=== PATIENT | female | born 1980 | race Caucasian/White ===

== ENCOUNTER 2017-06-14 08:03 | Emergency (ER) | payer OTHER ==
[2017-06-14 08:12] VITALS: TEMP 98.5
[2017-06-14] MEDS ORDERED: Sodium Chloride 0.9% 1,000 ML IV ONE (08:34)
--- NOTE | 2017-06-14 08:38 | C.PDOC ---
History Of Present Illness 37 yr old female presents to the ER with complaints of LLQ pain for the past 5 days. Patient has history of Endometriosis. Patient brought prior records from , history of license of adhesions, right salpingectomy. As per OP note, "+ L adnexa with extensive adhesions and left fallopian tube and ovary unable to identified secondary to adhesions". ROS is limited. LIMITED DUE TO CLIN COND LLQ PAIN X 5 DAYS. HO ENDOMETRIOSIS PT BROUGHT PRIOR RECORDS: 11/2013 HO LOS, R SALPINGECTOMY. PER OP NOTE, "+L ADNEXA W EXTENSIVE ADHESIONS AND L FALLOPIAN TUBE AND OVARY UNABLE TO IDENTIFIED SECONDARY TO ADHESIONS" ROS LIMITED EXAM MOD DIST CRYING NONTOXIC ABD OBESE +LLQ/PELVIC TEND MOD SOFT NO R/G REMAINDER NEG Time Seen by Provider: 06/14/17 08:14 Chief Complaint (Nursing): Abdominal Pain History Per: Patient, Other (Prior records) History/Exam Limitations: no limitations Onset/Duration Of Symptoms: Days (5) Past Medical History Reviewed: Historical Data, Nursing Documentation, Vital Signs Vital Signs: Last Vital Signs Temp 98.5 F 06/14/17 08:12 Pulse 75 06/14/17 10:19 Resp 19 06/14/17 10:19 BP 93/63 L 06/14/17 10:19 Pulse Ox 100 06/14/17 10:48 Family History: States: No Known Family Hx - Social History Hx Alcohol Use: No Hx Substance Use: No - Immunization History Hx Tetanus Toxoid Vaccination: No Hx Influenza Vaccination: No Hx Pneumococcal Vaccination: No Review Of Systems Review Of Systems: ROS cannot be obtained secondary to pt's inabilty to answer questions. Gastrointestinal: Positive for: Abdominal Pain (LLQ) Physical Exam - Physical Exam Appears: Non-toxic, In Acute Distress (Moderate, crying.) Skin: Warm, Dry, No Rash Head: Atraumatic, Normacephalic Oral Mucosa: Moist Chest: Symmetrical, No Tenderness Cardiovascular: Rhythm Regular, No Murmur Respiratory: Normal Breath Sounds, No Rales, No Rhonchi, No Wheezing Gastrointestinal/Abdominal: Soft, Tenderness (LLQ/Pelvic moderate tednerness. ) , No Guarding, No Rebound Back: Normal Inspection, No CVA Tenderness Extremity: Normal ROM, No Swelling ED Course And Treatment - Laboratory Results Result Diagrams: 06/14/17 08:45 06/14/17 08:45 O2 Sat by Pulse Oximetry: 100 (RA) Pulse Ox Interpretation: Normal - CT Scan/US CT - Abd & Pelvis Other Rad Studies (CT/US): Read By Radiologist, Radiology Report Reviewed CT/US Interpretation: PROCEDURE: CT Abdomen and Pelvis with and without intravenous contrast. HISTORY: LLQ PAIN. COMPARISON: None. TECHNIQUE: Axial images of the abdomen were obtained in the pre contrast, portal venous and delayed phases of enhancement. Coronal and sagittal reformats were generated. Contrast dose: 100 mL Visipaque three hundred twenty. Axial and reformatted coronal and sagittal CT images of the abdomen and pelvis were obtained after IV contrast administration. Radiation dose: Total exam DLP = 2870.53 mGy-cm. This CT exam was performed using one or more of the following dose reduction techniques: Automated exposure control, adjustment of the mA and/ or kV according to patient size, and/or use of iterative reconstruction technique. FINDINGS: LOWER THORAX: Unremarkable. LIVER: Unremarkable. No gross lesion or ductal dilatation. GALLBLADDER AND BILE DUCTS: Unremarkable. PANCREAS: Unremarkable. No gross lesion or ductal dilatation. SPLEEN: Unremarkable. ADRENALS: Unremarkable. No mass. KIDNEYS AND URETERS: Unremarkable. No hydronephrosis. No solid mass. VASCULATURE: Unremarkable. No aortic aneurysm. BOWEL: Questionable mild left colon wall thickening versus incomplete distention. No definite evidence of diverticulosis or diverticulitis. No obstruction. No gross mural thickening. No evidence of intestinal pneumatosis. APPENDIX: No evidence of appendicitis. PERITONEUM: Unremarkable. No free fluid. No free air. LYMPH NODES: Mildly enlarged retroperitoneal lymph nodes and mesenteric lymph nodes at the mid and upper abdomen. BLADDER: Unremarkable. REPRODUCTIVE: There is moderate enlargement of the left adnexa measures 7.1 x 5.1 centimeter contains multiple cyst. Mildly enlarged right adnexa is also noted. The uterus is normal in size and shape. BONES: No acute fracture. OTHER FINDINGS: None. IMPRESSION: Moderately enlarged left adnexa contains multiple cysts. Correlate with ultrasound of the pelvis. Questionable mild left colon wall thickening versus incomplete distention. No evidence of nephrolithiasis or hydronephrosis. US - Transvaginal Other Rad Studies (CT/US): Read By Radiologist, Radiology Report Reviewed CT/US Interpretation: HISTORY: L PELVIC PAIN RO TORSION. COMPARISON: None available. TECHNIQUE: Transvaginal ultrasound examination of the pelvis was performed. The transvaginal exam was performed to evaluate the deep adnexal structures. FINDINGS: UTERUS: Measures 7.2 x 3.7 x 5.1 cm. Normal in size and appearance. No fibroid or other mass lesion seen. ENDOMETRIUM: Measures 6.6 mm in diameter. Unremarkable. CERVIX: No cervical abnormality identified. RIGHT OVARY: Measures 4.2 x 2.3 x 3.7 cm. No solid mass. Normal flow. There is 2.1 x 1.7 x 2.5 centimeters complex cyst seen at the right ovary. LEFT OVARY : Measures 7.4 x 4.7 x 6.7 cm. No solid mass. Normal flow. Multiple complex cysts are seen at the left ovary with the largest cyst measures 2.84 x 2.4 x 4.4 centimeter. FREE FLUID: No significant free fluid noted. OTHER FINDINGS: None. IMPRESSION: Grossly unremarkable ultrasound examination of the uterus. Moderately enlarged left adnexa contains simple and complex cyst may represent hemorrhagic cyst. No ultrasound Doppler evidence of ovarian torsion. Progress - Re-Evaluation Re-evaluation Note: 06/14/17 08:44 d/w dr WILCOX AWARE OF ER FINDINGS AND AGREES W PLAN. 06/14/17 09:15 Patient reports improvement in pain, s/p Morphine. States the pain occasional radiates. Denies associated symptoms fever, nausea, vomiting or diarrhea. Patient is pending CT. 06/14/17 10:48 EXAM NEG. REMAINS ASYMPT ADVISED FU OBGYN - Data Reviewed Data Reviewed: Lab, Diagnostic imaging, Old records - Continuity of Care Discussed pt. case with interventional sale consultant/specialty: Obstetrics/Gynecology Medical Decision Making Medical Decision Making: PLAN: * CT - Abdomen & Pelvis * US - Transvaginal * CBC * CMP * Urinalysis * Morphine IVP * Sodium Chloride IV Disposition Counseled Patient/Family Regarding: Studies Performed, Diagnosis, Need For Followup, Rx Given - Disposition Referrals: YOUR,OBGYN [Other] Disposition: HOME/ ROUTINE Disposition Time: 10:49 Condition: IMPROVED Prescriptions: Acetaminophen/Codeine [Tylenol/Codeine 300 MG/30 MG] 2 tab PO Q6H PRN #20 tab PRN Reason: Pain, Moderate (4-7) Ibuprofen [Motrin] 600 mg PO Q6 #30 tab Instructions: Ovarian Cyst (ED) Forms: [facility] (Bulgarian), Work Excuse - Clinical Impression Clinical Impression: Ovarian cyst - Scribe Statement The provider has reviewed the documentation as recorded by the Danitzaibe Marta Azul Provider Attestation: All medical record entries made by the Danitzaibe were at my direction and personally dictated by me. I have reviewed the chart and agree that the record accurately reflects my personal performance of the history, physical exam, medical decision making, and the department course for this patient. I have also personally directed, reviewed, and agree with the discharge instructions and disposition.
[2017-06-14] MEDS ORDERED: Morphine 4 MG/ML VIAL ONE (08:41)
[2017-06-14] MEDS ORDERED: Sodium Chloride 0.9% 1,000 ML ONE (08:41)
[2017-06-14 08:49] LABS: BASO # 0.1 K/uL (0.0-0.2); EOS # 0.2 K/uL (0.0-0.7); EOS % 3.3 % (0.0-4.0); HEMATOCRIT 39.8 % (34.0-47.0); LYMPH # 1.7 K/uL (1.0-4.3); LYMPH % 29.4 % (20.0-40.0); MEAN CELL VOLUME 73.8 fL (81.0-99.0); MEAN CORPUSCULAR HEMOGLOBIN 24.4 pg (27.0-31.0); MEAN PLATELET VOLUME 7.1 fL (7.2-11.7); MONO # 0.6 K/uL (0.0-0.8); MONO % 10.7 % (0.0-10.0); NRBC % 0.1 % (0.0-2.0); WHITE BLOOD COUNT 5.8 K/uL (4.8-10.8)
[2017-06-14 08:55] LABS: CHLORIDE 99 mmol/L (98-107)
[2017-06-14 08:56] LABS: POTASSIUM 4.4 mmol/L (3.6-5.2); SODIUM 135 mmol/L (132-148)
[2017-06-14 08:58] LABS: CARBON DIOXIDE 24 mmol/L (22-30); GFR AFRICAN-AMERICAN > 60
[2017-06-14 08:58] LABS: URINE BACTERIA RARE (<OCC); URINE BILIRUBIN NEGATIVE (NEGATIVE); URINE BLOOD 2+ (NEGATIVE); URINE COLOR Yellow (YELLOW); URINE GLUCOSE (UA) NORMAL (Normal); URINE KETONE NEGATIVE (NEGATIVE); URINE LEUKOCYTE ESTERASE 1+ Leu/uL (Negative); URINE PROTEIN NEGATIVE (NEGATIVE); URINE UROBILINOGEN NORMAL mg/dL (0.2-1.0); WBC URINE 2 /hpf (0-5)
[2017-06-14 08:59] LABS: RBC URINE 3 /hpf (0-3)
[2017-06-14 08:59] LABS: ALB/GLOB RATIO 0.9 (1.0-2.1); ALKALINE PHOSPHATASE 87 U/L (38-126); ALT/SGPT 25 U/L (9-52); AST/SGOT 24 U/L (14-36); BILIRUBIN,TOTAL 0.5 mg/dL (0.2-1.3); BLOOD UREA NITROGEN 12 mg/dL (7-17); CALCIUM 9.5 mg/dl (8.6-10.4); GLUCOSE,RANDOM 116 mg/dL (65-105)
[2017-06-14] MEDS ORDERED: Iodixanol 320 MG/ML 100 ML BOTTLE IV ONE (09:10)
[2017-06-14 10:19] VITALS: BP 93/63; PULSE 75; RESP 19
[2017-06-14 10:29] VITALS: O2SAT 100
--- NOTE | 2017-06-14 10:32 | CT ---
PROCEDURE: CT Abdomen and Pelvis with and without intravenous contrast HISTORY: LLQ PAIN COMPARISON: None. TECHNIQUE: Axial images of the abdomen were obtained in the pre contrast, portal venous and delayed phases of enhancement. Coronal and sagittal reformats were generated. Contrast dose: 100 mL Visipaque three hundred twenty. Axial and reformatted coronal and sagittal CT images of the abdomen and pelvis were obtained after IV contrast administration. Radiation dose: Total exam DLP = 2870.53 mGy-cm. This CT exam was performed using one or more of the following dose reduction techniques: Automated exposure control, adjustment of the mA and/or kV according to patient size, and/or use of iterative reconstruction technique. FINDINGS: LOWER THORAX: Unremarkable. LIVER: Unremarkable. No gross lesion or ductal dilatation. GALLBLADDER AND BILE DUCTS: Unremarkable. PANCREAS: Unremarkable. No gross lesion or ductal dilatation. SPLEEN: Unremarkable. ADRENALS: Unremarkable. No mass. KIDNEYS AND URETERS: Unremarkable. No hydronephrosis. No solid mass. VASCULATURE: Unremarkable. No aortic aneurysm. BOWEL: Questionable mild left colon wall thickening versus incomplete distention. No definite evidence of diverticulosis or diverticulitis. No obstruction. No gross mural thickening. No evidence of intestinal pneumatosis. APPENDIX: No evidence of appendicitis. PERITONEUM: Unremarkable. No free fluid. No free air. LYMPH NODES: Mildly enlarged retroperitoneal lymph nodes and mesenteric lymph nodes at the mid and upper abdomen. BLADDER: Unremarkable. REPRODUCTIVE: There is moderate enlargement of the left adnexa measures 7.1 x 5.1 centimeter contains multiple cyst. Mildly enlarged right adnexa is also noted. The uterus is normal in size and shape. BONES: No acute fracture. OTHER FINDINGS: None. IMPRESSION: Moderately enlarged left adnexa contains multiple cysts. Correlate with ultrasound of the pelvis. Questionable mild left colon wall thickening versus incomplete distention. No evidence of nephrolithiasis or hydronephrosis.
--- NOTE | 2017-06-14 10:39 | US ---
HISTORY: L PELVIC PAIN RO TORSION COMPARISON: None available. TECHNIQUE: Transvaginal ultrasound examination of the pelvis was performed. The transvaginal exam was performed to evaluate the deep adnexal structures. FINDINGS: UTERUS: Measures 7.2 x 3.7 x 5.1 cm. Normal in size and appearance. No fibroid or other mass lesion seen. ENDOMETRIUM: Measures 6.6 mm in diameter. Unremarkable. CERVIX: No cervical abnormality identified. RIGHT OVARY: Measures 4.2 x 2.3 x 3.7 cm. No solid mass. Normal flow. There is 2.1 x 1.7 x 2.5 centimeters complex cyst seen at the right ovary. LEFT OVARY: Measures 7.4 x 4.7 x 6.7 cm. No solid mass. Normal flow. Multiple complex cysts are seen at the left ovary with the largest cyst measures 2.84 x 2.4 x 4.4 centimeter. FREE FLUID: No significant free fluid noted. OTHER FINDINGS: None. IMPRESSION: Grossly unremarkable ultrasound examination of the uterus. Moderately enlarged left adnexa contains simple and complex cyst may represent hemorrhagic cyst. No ultrasound Doppler evidence of ovarian torsion.
== END 2017-06-14 11:06 | disposition home or self-care (01) ==
LOC: C.ER 08:03
DX: N83.209 Unspecified ovarian cyst, unspecified side (principal)
CPT/HCPCS: 74178; 76830; 80053; 81001; 83690; 85025; 87086; 96361; 96374; 96375; 99285; J1885; J2270; J2405; J7040; Q9967

== ENCOUNTER 2018-02-08 15:50 | Emergency (ER) | payer OTHER ==
[2018-02-08 15:57] VITALS: RESP 18; O2SAT 100
[2018-02-08 16:24] LABS: HCG,QUALITATIVE URINE NEGATIVE (NEGATIVE); SQUAMOUS EPITHIAL < 1 /hpf (0-5); URINE BILIRUBIN NEGATIVE (NEGATIVE); URINE BLOOD NEGATIVE (NEGATIVE); URINE CLARITY Clear (Clear); URINE COLOR Yellow (YELLOW); URINE GLUCOSE (UA) NORMAL (Normal); URINE LEUKOCYTE ESTERASE NEG Leu/uL (Negative); URINE PROTEIN NEGATIVE (NEGATIVE); URINE UROBILINOGEN NORMAL mg/dL (0.2-1.0)
--- NOTE | 2018-02-08 16:39 | C.PDOC ---
History Of Present Illness 37 year old female presents to ED for evaluation of generalized weakness, and body aches for the past few days. Expecting menstrual period but is late- Pt thinks she may be and is requesting test. denies h/o anemia, heavy menstrual bleeding, dark stools or GI bleeding/gastritis. Denies abdominal pain, n/v/d, fever, chills, or any other associated symptoms. Time Seen by Provider: 02/08/18 16:04 Chief Complaint (Nursing): Medical Clearance History Per: Patient History/Exam Limitations: no limitations Onset/Duration Of Symptoms: Days Current Symptoms Are (Timing): Still Present Recent travel outside of the [place]: No Additional History Per: Patient Past Medical History Reviewed: Historical Data, Nursing Documentation, Vital Signs Vital Signs: Last Vital Signs Temp 98.6 F 02/08/18 15:53 Pulse 78 02/08/18 15:53 Resp 18 02/08/18 15:53 BP 109/71 02/08/18 15:53 Pulse Ox 100 02/08/18 16:41 - Medical History PMH: Asthma Family History: States: Unknown Family Hx - Social History Hx Alcohol Use: No Hx Substance Use: No - Immunization History Hx Tetanus Toxoid Vaccination: No Hx Influenza Vaccination: No Hx Pneumococcal Vaccination: No Review Of Systems Except As Marked, All Systems Reviewed And Found Negative. Constitutional: Positive for: Weakness, Other (body aches). Negative for: Fever , Chills Cardiovascular: Negative for: Chest Pain, Palpitations Respiratory: Negative for: Cough, Shortness of Breath Gastrointestinal: Negative for: Nausea, Vomiting, Abdominal Pain, Diarrhea Physical Exam - Physical Exam Appears: Non-toxic, No Acute Distress, Other (morbidly obese) Skin: Normal Color, Warm, Dry Head: Atraumatic, Normacephalic Eye(s): bilateral: Normal Inspection Oral Mucosa: Moist Cardiovascular: Rhythm Regular Respiratory: Normal Breath Sounds, No Rales, No Rhonchi, No Wheezing Gastrointestinal/Abdominal: Soft, No Tenderness Back: No CVA Tenderness Extremity: Normal ROM Neurological/Psych: Oriented x3, Normal Speech ED Course And Treatment - Laboratory Results Lab Interpretation: Normal (UA neg.) Urine POC: Negative O2 Sat by Pulse Oximetry: 100 (RA) Pulse Ox Interpretation: Normal Medical Decision Making Medical Decision Making: Urinalysis was ordered and reviewed. lethargy with normal exam, no s/s of anemia, late menstrual period but normal UA /preg and normal VS's encouraged to f/u as opt. Disposition Doctor Will See Patient In The: Office Counseled Patient/Family Regarding: Studies Performed, Diagnosis - Disposition Disposition: HOME/ ROUTINE Disposition Time: 17:05 Condition: GOOD Forms: [facility] (German) - Clinical Impression Clinical Impression: Lethargy, Encounter for test - Scribe Statement The provider has reviewed the documentation as recorded by the Danitzaibviki Stockton All medical record entries made by the Eliud were at my direction and personally dictated by me. I have reviewed the chart and agree that the record accurately reflects my personal performance of the history, physical exam, medical decision making, and the department course for this patient. I have also personally directed, reviewed, and agree with the discharge instructions and disposition.
[2018-02-08 17:24] VITALS: BP 108/75; PULSE 88; TEMP 98
== END 2018-02-08 17:23 | disposition home or self-care (01) ==
LOC: C.ER 15:50
DX: R53.83 Other fatigue (principal); Z32.02 Encounter for pregnancy test, result negative